=== PATIENT | male | born 1940 | race Hispanic/Latino ===

== ENCOUNTER 2017-05-04 17:11 | Inpatient (IN) | payer MEDICARE ==
[~2017-05-04] VITALS: Ht 177.8 cm; Wt 86.5 kg
[2017-05-04] MEDS ORDERED: ACETAMINOPHEN EXTRA STRENGTH 500 MG TABLET ONE (17:35)
[2017-05-04 18:01] LABS: BASOPHILS % (AUTO) 0.1 % (0.0-5.0); HEMATOCRIT 37.9 % (42-54); LYMPHOCYTES % (AUTO) 4.5 % (21.0-51.0); MEAN CORPUSCULAR HEMOGLOBIN 30.4 pg (27.0-33.0); MEAN CORPUSCULAR HGB CONC 34.9 g/dL (32.0-36.0); MEAN CORPUSCULAR VOLUME 86.9 fL (79-99); MONOCYTES % (AUTO) 10.8 % (3.0-13.0); NEUTROPHILS % (AUTO) 84.6 % (40.0-77.0); PLATELET COUNT (AUTO) 158 K/uL (130-400); RED BLOOD CELL COUNT(AUTO) 4.36 MIL/uL (4.50-6.20); RED CELL DISTRIBUTION WIDTH 13.1 % (11.0-15.5)
[2017-05-04 18:15] LABS: CREATININE 1.1 mg/dL (0.5-1.5)
[2017-05-04 18:19] LABS: ALBUMIN 2.7 g/dL (3.5-5.0); BILIRUBIN,TOTAL 1.2 mg/dL (0.2-1.0); TOTAL PROTEIN, SERUM 6.8 g/dL (6.0-8.3)
[2017-05-04] MEDS ORDERED: METRONIDAZOLE 500MG/100ML BAG 100 ML ONE (19:28)
[2017-05-04] MEDS ORDERED: ONDANSETRON HCL 4 MG/2 ML VIAL ONE (19:28)
[2017-05-04] MEDS ORDERED: KETOROLAC TROMETHAMINE 30MG/ML ONE (19:28)
[2017-05-04] MEDS ORDERED: MEROPENEM 1 GM VIAL IVP SCH (21:00)
[2017-05-04] MEDS: LEVOFLOXACIN 500 MG/D5W 100 ML 100 ML IV SCH (22:15)
[2017-05-04] MEDS ORDERED: ONDANSETRON HCL 4 MG/2 ML VIAL IV PRN (22:15)
[2017-05-04] MEDS ORDERED: MORPHINE SULFATE 2 MG/ML 1ML SYG IV PRN (22:15)
[2017-05-04] MEDS ORDERED: SODIUM CHLORIDE 0.9% 1000ML 1,000 ML IV ONE (22:15)
[2017-05-04] MEDS ORDERED: HYDRALAZINE HCL 20 MG/ML VIAL IV PRN (22:15)
[2017-05-04] MEDS ORDERED: SODIUM CHLORIDE 0.9% 1000ML 3,000 ML IV ONE (22:29)
[2017-05-04] MEDS ORDERED: LIDOCAINE HCL-MPF 1% 2ML VIAL IVP PRN (22:30)
[2017-05-04] MEDS ORDERED: POTASSIUM CHLORIDE 20MEQ/100ML 100 ML IV PRN (22:30)
[2017-05-04] MEDS ORDERED: POTASSIUM CHLORIDE 10% ELIXIR 20 MEQ/15 ML UDCUP PO PRN (22:30)
[2017-05-04] MEDS ORDERED: MEROPENEM 1 GM VIAL ONE (23:03)
[2017-05-04] MEDS ORDERED: POTASSIUM BICARB/CIT AC 25 MEQ TABLET.EFF ONE (23:04)
[2017-05-04] MEDS ORDERED: LEVOFLOXACIN 500 MG/D5W 100 ML 100 ML ONE (23:04)
[2017-05-04 23:51] LABS: APPEARANCE,URINE Clear (CLEAR); BILIRUBIN,URINE Negative (NEGATIVE); COLOR,URINE Dark Yellow (YELLOW); GLUCOSE, URINE (UA) Negative (NEGATIVE); KETONES,URINE Negative (NEGATIVE); LEUKOCYTE ESTERASE ,URINE Negative (NEGATIVE); NITRATE,URINE Negative (NEGATIVE); OCCULT BLOOD,URINE Negative (NEGATIVE); PH,URINE 5.5 (5.0-8.0); PROTEIN,URINE Negative (NEGATIVE)
[2017-05-05] VITALS (7 sets, daily range): BP systolic 128–151; BP diastolic 65–90
[2017-05-05] MEDS ORDERED: DICY20TA11 PO (00:18)
[2017-05-05] MEDS ORDERED: ACET-2743 PO (00:18)
[2017-05-05] MEDS ORDERED: ASPI-555 PO (00:18)
[2017-05-05] MEDS ORDERED: LISI1TAB11 PO (00:18)
[2017-05-05] MEDS ORDERED: AMLO10TA2 PO (00:18)
[2017-05-05] MEDS ORDERED: ATOR40TA69 PO (00:18)
[2017-05-05] MEDS ORDERED: METO100T14 PO (00:18)
[2017-05-05] MEDS: SODIUM CHLORIDE 0.9% 1000ML 1,000 ML IV SCH ×2 (01:53→12:17)
[2017-05-05] MEDS: METRONIDAZOLE 500MG/100ML BAG 100 ML IV SCH ×3 (03:12→20:03)
[2017-05-05 04:33] LABS: BASOPHILS % (AUTO) 0.2 % (0.0-5.0); EOSINOPHILS % (AUTO) 0.5 % (0.0-8.0); LYMPHOCYTES % (AUTO) 7.9 % (21.0-51.0); MEAN CORPUSCULAR HEMOGLOBIN 29.7 pg (27.0-33.0); MEAN CORPUSCULAR HGB CONC 33.8 g/dL (32.0-36.0); MEAN CORPUSCULAR VOLUME 87.9 fL (79-99); MONOCYTES % (AUTO) 11.2 % (3.0-13.0); NEUTROPHILS % (AUTO) 80.2 % (40.0-77.0); PLATELET COUNT (AUTO) 144 K/uL (130-400); RED BLOOD CELL COUNT(AUTO) 4.55 MIL/uL (4.50-6.20); RED CELL DISTRIBUTION WIDTH 13.1 % (11.0-15.5); WHITE BLOOD COUNT (AUTO) 8.6 K/uL (4.8-10.8)
[2017-05-05 04:44] LABS: MAGNESIUM 2.2 mg/dL (1.80-2.40); POTASSIUM 3.5 mmol/L (3.5-5.1)
[2017-05-05] MEDS: POTASSIUM CHLORIDE 20 MEQ ERTAB PO PRN ×2 (05:54→12:13)
[2017-05-05] MEDS: PANTOPRAZOLE SODIUM 40 MG TABLET.DR PO SCH (07:54)
[2017-05-05] MEDS: ACETAMINOPHEN 325 MG TAB PO PRN ×3 (07:55→23:35)
[2017-05-05] MEDS: LEVOFLOXACIN 500 MG/D5W 100 ML 100 ML IV SCH (20:03)
[2017-05-06] VITALS (25 sets, daily range): BP systolic 120–155; BP diastolic 57–87
[2017-05-06] MEDS: SODIUM CHLORIDE 0.9% 1000ML 1,000 ML IV SCH ×2 (01:02→14:08)
[2017-05-06] MEDS: METRONIDAZOLE 500MG/100ML BAG 100 ML IV SCH ×3 (05:21→20:01)
[2017-05-06 07:00] LABS: INR 1.04 (0.85-1.15); PARTIAL THROMBOPLASTIN TIME 30.8 SEC (26.3-35.5); PROTHROMBIN TIME 10.9 SEC (9.6-11.6)
[2017-05-06] MEDS ORDERED: LACTATED RINGERS 1000ML 1,000 ML IV ONE (07:56)
[2017-05-06] MEDS ORDERED: NEOSTIGMINE METHYLSULFATE 1MG/ML IV ONE (08:32)
[2017-05-06] MEDS ORDERED: SUCCINYLCHOLINE 200MG/10ML SYR ONE (08:32)
[2017-05-06] MEDS ORDERED: ONDANSETRON HCL 4 MG/2 ML VIAL ONE (08:32)
[2017-05-06] MEDS ORDERED: GLYCOPYRROLATE 0.2 MG/ML 5 ML VIAL ONE (08:32)
[2017-05-06] MEDS ORDERED: LIDOCAINE PF 2% 5ML ABBOJECT ONE (08:32)
[2017-05-06] MEDS ORDERED: DEXAMETHASONE SOD PHOSPHATE 10MG/ML 1ML VIAL ONE (08:32)
[2017-05-06] MEDS ORDERED: FENTANYL CITRATE PF 50 MCG/1 ML 2ML VIAL ONE ×3 (08:33→10:48)
[2017-05-06] MEDS ORDERED: MIDAZOLAM HCL 1 MG/ML 2ML VIAL ONE (08:33)
[2017-05-06] MEDS ORDERED: PROPOFOL 10 MG/ML 20ML VIAL IV ONE (08:33)
[2017-05-06] MEDS ORDERED: NEOMY SULF/POLYMYXIN B SULFATE 1 ML AMPUL IR ONE (08:51)
[2017-05-06] MEDS ORDERED: BUPIVACAINE/EPI/PF 0.5% 30ML VIAL IJ ONE (08:51)
[2017-05-06] MEDS: PANTOPRAZOLE SODIUM 40 MG TABLET.DR PO SCH (09:00)
[2017-05-06] MEDS ORDERED: MEPERIDINE-PF 25 MG/ML SYG ONE (10:30)
[2017-05-06] MEDS ORDERED: CALDOLOR 800MG+NS 250ML 250 ML IV ONE (11:13)
[2017-05-06] MEDS: ACETAMINOPHEN 325 MG TAB PO PRN (17:32)
[2017-05-06] MEDS ORDERED: HYDROCODONE/ACETAMINOPHEN 7.5/325 MG TAB PO PRN ×2 (18:30)
[2017-05-06] MEDS: LEVOFLOXACIN 500 MG/D5W 100 ML 100 ML IV SCH (22:27)
[2017-05-07] VITALS: BP 146/81
[2017-05-07] MEDS: SODIUM CHLORIDE 0.9% 1000ML 1,000 ML IV SCH (02:42)
[2017-05-07 04:00] VITALS: BP 136/82
[2017-05-07] MEDS: METRONIDAZOLE 500MG/100ML BAG 100 ML IV SCH (04:09)
[2017-05-07 07:00] VITALS: BP 149/88
[2017-05-07] MEDS: PANTOPRAZOLE SODIUM 40 MG TABLET.DR PO SCH (08:36)
== END 2017-05-07 13:10 | disposition home or self-care (01) | DRG 854 ==
LOC: EDH 17:11 → EDHIP 19:13 → 4AH 23:15 → 3DH 05-05 22:59
PROVIDERS: ADMIT Family Medicine; ATTEND Family Medicine
PROC: 0FT44ZZ Resection of Gallbladder, Percutaneous Endoscopic Approach (ICD-10-PCS; principal; 2017-05-06 08:35)
DX: A41.9 Sepsis, unspecified organism (principal); K80.00 Calculus of gallbladder with acute cholecystitis without obstruction; K82.1 Hydrops of gallbladder; K76.0 Fatty (change of) liver, not elsewhere classified; E87.1 Hypo-osmolality and hyponatremia; E87.6 Hypokalemia; I10 Essential (primary) hypertension; E78.5 Hyperlipidemia, unspecified; Z28.21 Immunization not carried out because of patient refusal; Z82.49 Family history of ischemic heart disease and other diseases of the circulatory system; Z83.3 Family history of diabetes mellitus
CPT/HCPCS: 36415; 71045; 76705; 80048; 80053; 81003; 82150; 82948; 83690; 83735; 84132; 85025; 85610; 85730; 87040; 87804; 88304; J0330; J1100; J1741; J1885; J1956; J2001; J2175; J2185; J2250; J2405; J2704; J2710; J3010; J3490; J7030; J7120

== ENCOUNTER 2025-02-12 13:06 | Emergency (ER) | payer MEDICARE ==
[~2025-02-12] VITALS: Ht 177.8 cm; Wt 98.0 kg
[~2025-02-12 13:06] MED LIST: AMLO-258 PO; APIX5TAB PO; ATOR40TA69 PO; DIGO250T73 PO; FURO20TA4 PO; LOSA100T59 PO
[2025-02-12 14:03] LABS: IMMATURE GRANULOCYTE ABSOLUTE 0.05 K/uL (0-1); NUCLEATED RED BLOOD CELLS 0.0 % (0.0-0.19); PLATELET COUNT (AUTO) 150 K/uL (130-400); RED BLOOD CELL COUNT(AUTO) 4.90 MIL/uL (4.50-6.20); RED CELL DISTRIBUTION WIDTH 13.2 % (11.0-15.5); WHITE BLOOD COUNT (AUTO) 10.9 K/uL (4.8-10.8)
--- NOTE | 2025-02-12 14:03 | EKG ---
[facility] Test Date: 2025-02-12 Test Time: 13:59:20 Pat Name: DANIEL GOMEZ Department: ED Room: Gender: M [employer]: [facility] : 1940 Requested By: DIANNA GNAT Order Number: [id number] Reading MD: Spenser Nolasco Measurements Intervals [place] Rate: 77 P: 0 VA: 0 QRS: 60 QRSD: 94 T: -81 QT: 301 QTc: 340 Interpretive Statements Atrial fibrillation Nonspecific repol abnormality, diffuse leads No previous ECG available for comparison Electronically Signed On 02-12-2025 18:08:00 CDT by Spenser Nolasco Please click the below link to view image of tracing.
[2025-02-12 14:23] LABS: CREATININE 0.9 mg/dL (0.5-1.3); GLOMERULAR FILTR. RATE CALC 84.0 mL/min (>90); GLUCOSE,RANDOM 117.0 mg/dL (70-105); SODIUM SERUM 137.0 mmol/L (136-145); UREA NITROGEN, BLOOD 12.0 mg/dL (7-18)
--- NOTE | 2025-02-12 14:25 | NUR ---
PATIENT TAKEN TO CT.
[2025-02-12 14:27] LABS: ASPARTATE AMINOTRANSFERASE 26.0 U/L (10-37); TOTAL PROTEIN, SERUM 8.7 g/dL (6.0-8.3)
[2025-02-12 14:28] LABS: BAND NEUTROPHILS % (MANUAL) 7 % (0-2); LYMPHOCYTES % (MANUAL) 14 % (22-44); MAN.DIFF COMMENT-IMPRESSION MANUAL DIFFERENTIAL; MONOCYTES % (MANUAL) 2 % (2-9); PLATELET MORPHOLOGY COMMENT ADEQUATE; SEGMENTED NEUTROPHILS % 77 % (40-70); WBC MORPHOLOGY CONSISTENT W/DIFF
[2025-02-12] MEDS: 0.9% NACL 500ML IV.SOLN 500 ML IV ONE (14:53)
[2025-02-12 15:02] LABS: GLUCOSE, URINE (UA) NEGATIVE (NEGATIVE); LEUKOCYTE ESTERASE ,URINE NEGATIVE Leu/uL (NEGATIVE); NITRATE,URINE NEGATIVE (NEGATIVE); OCCULT BLOOD,URINE NEGATIVE (NEGATIVE)
[2025-02-12 15:03] LABS: APPEARANCE,URINE HAZY (CLEAR)
[2025-02-12 15:04] LABS: ADD UA MICROSCOPIC YES
--- NOTE | 2025-02-12 15:26 | HMCIMG ---
EXAM: CT Abdomen and Pelvis Without IV contrast CLINICAL HISTORY: abdominal pain TECHNIQUE: Axial computed tomography images of the abdomen and pelvis without intravenous contrast. CONTRAST: No IV contrast. COMPARISON: None provided. FINDINGS: LUNG BASES: Atelectatic band in the posterior basal segment of the right lower lobe. No pleural effusions are seen. Mild cardiomegaly. LIVER: The liver is enlarged in size. The right hepatic lobe measures up to 17 cm. GALLBLADDER AND BILE DUCTS: Post cholecystectomy. PANCREAS: Unremarkable. SPLEEN: Unremarkable. ADRENAL GLANDS: Unremarkable. KIDNEYS, URETERS, AND BLADDER: Bilateral perinephric fat stranding that is concerning for renal parenchymal disease. The kidneys appear within normal limits. There is no hydronephrosis or hydroureter. No urinary calculi are seen. STOMACH AND BOWEL: Unremarkable appearance of the stomach and bowel. No evidence of bowel obstruction. No evidence suggesting enteritis or colitis. APPENDIX: No evidence of acute appendicitis on CT examination. PERITONEUM: No free fluid. No free air. LYMPH NODES: No lymphadenopathy is evident. REPRODUCTIVE: The prostate is enlarged in size, measuring 42 cc, with few foci of calcifications within. VASCULATURE: No evidence of abdominal aortic aneurysm. Atherosclerotic calcification of the aorta and its branches. BONES: No aggressive appearing osseous lesion. No acute osseous pathology evident. Grade I retrolisthesis of L2 over the L3 vertebrae. Moderate to severe degenerative changes in the spine. IMPRESSION: 1. Hepatomegaly with right hepatic lobe measuring up to 17 cm. 2.. No acute abdominal or pelvic findings. /[facility]
[2025-02-12] MEDS ORDERED: ONDA-243 PO (17:03)
--- NOTE | 2025-02-12 17:04 | ERN ---
ED Note History of Present Illness Stated Complaint: ABD PAIN Chief Complaint: Abdominal Pain Time Seen by MD: 13:42 Dictation: 84-year-old male with the abdominal pain presenting to the emergency department with nausea over the past few days no vomiting no fever no chest pain no shortness a breath patient had gallbladder removed in 2018. Allergies: Coded Allergies: No Known Allergies (Verified Allergy, Unknown, 05/04/17) Home Meds Reported Medications Apixaban (Eliquis) 5 Mg Tablet, 5 MG PO BID, TAB 12/24/22 Furosemide (Furosemide) 20 Mg Tablet, 20 MG PO BID, TAB 12/24/22 Losartan Potassium (Losartan Potassium) 100 Mg Tablet, 100 MG PO DAILY, TAB 12/24/22 Digoxin (Digoxin) 250 Mcg Tablet, 250 MCG PO DAILY, TAB 12/24/22 Atorvastatin Calcium (LIPITOR) 80 Mg Tablet, 80 MG PO HS, TAB 05/05/17 Amlodipine Besylate (Amlodipine Besylate) 10 Mg Tablet, 10 MG PO AM, TAB 05/05/17 Past Medical History Past Medical History: Heart Disease, Hypertension Surgical History: None Review of System Dictation Constitutional: Negative for fever,chills, and weight loss Eyes: Negative for injury, pain,redness, and discharge ENT: Negative for injury,pain or swelling Cardiovascular: Negative for chest pain, palpitations, and edema Respiratory: Negative for shortness of breath, cough, and wheezing, Abdomen/GI: Per HPI : Negative for injury, bleeding and discharge MS/Extremity: Negative for injury and deformity Skin: Negative for rash, and discoloration Neuro: Negative for headache, weakness, numbness, tingling, and seizure Psych: Negative for suicide ideation, homicidal ideation, and hallucinations Initial Vital Sign VS Vital Signs Date Time Temp Pulse Resp B/P (MAP) Pulse Ox O2 Delivery O2 Flow Rate FiO2 02/12/25 13:44 98.8 67 18 166/62 98 02/12/25 13:46 Room Air* 0 21 Physical Exam Dictation General: awake, alert, NAD Head/Face: Normocephalic, atraumatic Eyes: PERRL, EOMI, vision at baseline ENT: oral cavity clear, TMs clear, no signs of infection Neck: Trachea midline, supple, no nuchal rigidity Cardiovascular: RRR, normal S1/S2, No MRGs, no JVD Respiratory: CTAB, no respiratory distress, No rales or wheezes Abdomen: Soft, mid abdominal tenderness to palpation, non-distended, normal bowel sounds, no guarding or rebound. Skin: Warm, dry, normal turgor, no rash MS/Extremity: Pulses equal, no cyanosis, neurovascular intact, FROM Neuro: COAx4, GCS 15, strength 5/5, CN 2-12 intact, normal cerebellar exam, normal gait, Psych: Normal behavior, mood, and affect normal Results (Laboratory/Radiology) Laboratory/Radiology Laboratory Tests Test 02/12/25 13:58 02/12/25 14:48 White Blood Count 10.9 K/uL (4.8-10.8) H Red Blood Count 4.90 MIL/uL (4.50-6.20) Hemoglobin 14.2 g/dL (14.0-18.0) Hematocrit 45.0 % (42-54) Mean Corpuscular Volume 91.8 fL (79-99) Mean Corpuscular Hemoglobin 29.0 pg (27.0-33.0) Mean Corpuscular Hemoglobin Concent 31.6 g/dL (32.0-36.0) L Red Cell Distribution Width 13.2 % (11.0-15.5) Platelet Count 150 K/uL (130-400) Mean Platelet Volume 10.1 fL (7.5-10.5) Immature Granulocyte % (Auto) 0.5 % (0-1) Neutrophils (%) (Auto) 86.6 % (40.0-77.0) H Lymphocytes (%) (Auto) 8.6 % (21.0-51.0) L Monocytes (%) (Auto) 3.9 % (3.0-13.0) Eosinophils (%) (Auto) 0.2 % (0.0-8.0) Basophils (%) (Auto) 0.2 % (0.0-5.0) Neutrophils # (Auto) 9.4 K/uL (1.8-7.7) H Lymphocytes # (Auto) 0.9 K/uL (1.0-4.8) L Monocytes # (Auto) 0.4 K/uL (0.1-1.0) Eosinophils # (Auto) 0.02 K/uL (0.00-0.70) Basophils # (Auto) 0.02 K/uL (0.00-0.20) Absolute Immature Granulocyte (auto 0.05 K/uL (0-1) Segmented Neutrophils % 77 % (40-70) H Band Neutrophils % 7 % (0-2) H Lymphocytes % (Manual) 14 % (22-44) L Monocytes % (Manual) 2 % (2-9) Nucleated Red Blood Cells 0.0 % (0.0-0.19) Differential Comment MANUAL DIFFERENTIAL White Cell Morphology Comment CONSISTENT W/DIFF Platelet Morphology Comment ADEQUATE Red Blood Cell Morphology NORMAL Sodium Level 137 mmol/L (136-145) Potassium Level 3.6 mmol/L (3.5-5.1) Chloride Level 101 mmol/L (101-111) Carbon Dioxide Level 25 mmol/L (21-32) Blood Urea Nitrogen 12 mg/dL (7-18) Creatinine 0.9 mg/dL (0.5-1.3) Glomerular Filtration Rate Calc 84 mL/min (>90) Random Glucose 117 mg/dL (70-105) H Total Calcium 8.8 mg/dL (8.5-10.1) Total Bilirubin 0.9 mg/dL (0.2-1.0) Direct Bilirubin 0.2 mg/dL (0.0-0.3) Aspartate Amino Transf (AST/SGOT) 26 U/L (10-37) Alanine Aminotransferase (ALT/SGPT) 23 U/L (12-78) Alkaline Phosphatase 88 U/L (50-136) Troponin I High Sensitivity 8 ng/L (4-75) Total Protein 8.7 g/dL (6.0-8.3) H Albumin 4.2 g/dL (3.5-5.0) Lipase 39 U/L (16-77) Urine Color LIGHT-YELLOW (YELLOW) Urine Appearance HAZY (CLEAR) Urine pH 8.0 (5.0-8.0) Urine Specific [place] 1.012 (1.001-1.031) Urine Protein NEGATIVE mg/dL (NEGATIVE) Urine Glucose (UA) NEGATIVE mg/dL (NEGATIVE) Urine Ketones NEGATIVE mg/dL (NEGATIVE) Urine Occult Blood NEGATIVE (NEGATIVE) Urine Nitrate NEGATIVE (NEGATIVE) Urine Bilirubin NEGATIVE mg/dL (NEGATIVE) Urine Urobilinogen 2.0 mg/dL (0.2-1.0) H Urine Leukocyte Esterase NEGATIVE Page/uL Urine RBC 2-5 /HPF (0-1) H Urine WBC 0-1 /HPF (0-1) Urine Amorphous Crystals (Auto) FEW /LPF (None Seen) Urine Bacteria MOD /HPF (None Seen) Labs Reviewed?: Yes EKG Comment: Heart rate 77 atrial fibrillation, no STEMI ED Course ED Course Orders Procedure Category Date Status Time 12 Lead Ekg Tracing- EKG 02/12/25 Complete Technical 13:45 Cbc With Differential LAB 02/12/25 Complete 13:45 Basic Metabolic Panel LAB 02/12/25 Complete 13:45 Hepatic Function Panel LAB 02/12/25 Complete 13:45 Lipase LAB 02/12/25 Complete 13:45 Troponin I High LAB 02/12/25 Complete Sensitivity 13:45 Urinalysis Profile LAB 02/12/25 Complete 13:45 Ct Abd/Pel Wo Con CT 02/12/25 Resulted Renal/Appy 13:45 Ondansetron 4mg Inj PHA 02/12/25 Complete (Zofran 4mg Inj) 14:04 Ketorolac PHA 02/12/25 Complete Tromethamine 15mg/Ml 14:04 0.9% Nacl 500ml PHA 02/12/25 Complete Iv.Soln (Ns 500ml 14:30 Manual Differential LAB 02/12/25 Complete 13:58 Current Medications Medications (Trade) Dose Ordered Sig/[place] Route PRN Reason Start Time Stop Time Status Last Admin Dose Admin Ketorolac Tromethamine (toRADol) 15 mg ONCE STAT IV 02/12/25 14:04 02/12/25 14:14 DC 02/12/25 14:59 Ondansetron HCl (zoFRAN 4MG INJ) 4 mg ONCE STAT IVP 02/12/25 14:04 02/12/25 14:12 DC 02/12/25 14:53 Sodium Chloride 500 ml @ 0 mls/hr ONCE ONCE IV 02/12/25 14:30 02/12/25 14:31 DC 02/12/25 14:53 Vital Signs Date Time Temp Pulse Resp B/P (MAP) Pulse Ox O2 Delivery O2 Flow Rate FiO2 02/12/25 15:07 98.1 100 17 168/61 97 Room Air* 0 21 02/12/25 13:46 98.1 79 17 162/87 96 Room Air* 0 21 02/12/25 13:44 98.8 67 18 166/62 98 Medical Decision Making MDM MDM: Differential diagnosis: Rationale: Tests considered and ordered secondary to shared decision making include: Previous outside records reviewed: Old ER visits. Risk of complication and/or morbidity or mortality of patient management: None Medications-Per medication reconciliation Need for hospitalization: Patient does not meet criteria for hospitalization. Need for emergency major/minor surgery: No There are no social concerns with this patient. Prescription drug management Prescriptions will include symptomatic care Patient's prior external medical records from other ER visits were reviewed by me as indicated. Prior testing and results from previous visits were reviewed. Prior tests were taken into account with medical decision making and resource utilization, independent historian/historians were used to obtain complete medical history. I independently interpreted the test that were performed, results were reviewed by me and considered findings on radiology if ordered. Medical management and examination interpretation discussions were had by me with other qualified healthcare professionals as indicated for the patient's care. 84-year-old male abdominal pain nonspecific negative workup, rate controlled AFib chronic, abdominal pain improved labs stable CT scan stable stable for outpatient follow up and treatment. DX & DISP Disposition: Discharge Departure Impression: Primary Impression: Acute abdominal pain Condition: Stable Scripts Ondansetron (Ondansetron Odt) 4 Mg Tab.rapdis 4 MG PO BID for vomiting for 5 Days, #10 TAB Prov: DIANNA GANT MD 02/12/25 Referrals: ANTONIO CHAIREZ (PCP) DIANNA GANT MD Feb 12, 2025 17:03
[2025-02-12 17:05] VITALS: BP 168/61; PULSE 100; RESP 17; TEMP 98.1; O2SAT 98
== END 2025-02-12 17:12 | disposition home or self-care (01) ==
LOC: EDH 13:06
DX: R10.9 Unspecified abdominal pain (principal); R11.0 Nausea; I11.9 Hypertensive heart disease without heart failure; Z79.899 Other long term (current) drug therapy; Z79.01 Long term (current) use of anticoagulants
CPT/HCPCS: 99285; 74176; 96374; 96375; 80076; 84484; 80048; 83690; 85025; 81001; 36415; 93005; J1885; J7040; J2405